=== PATIENT | male | born 1940 | race Caucasian/White ===

== ENCOUNTER 2021-10-07 14:30 | Emergency (ER) | payer OTHER ==
[2021-10-07] MEDS ORDERED: DIAZEPAM 5 MG TABLET PO ONE (15:00)
[2021-10-07] MEDS ORDERED: KETOROLAC 15MG/ML VIAL (15MG/ML) IV ONE (15:00)
[2021-10-07 15:05] VITALS: BP 107/61
[2021-10-07] MEDS ORDERED: KETOROLAC 15MG/ML VIAL (15MG/ML) ONE (15:47)
[2021-10-07] MEDS ORDERED: DIAZEPAM 5 MG TABLET ONE (15:47)
[2021-10-07] MEDS ORDERED: CYCL10TA16 PO (16:02)
[2021-10-07] MEDS ORDERED: TRAM1TAB2 PO (16:02)
== END 2021-10-07 16:30 | disposition home or self-care (01) ==
LOC: EDH 14:30
DX: S39.012A Strain of muscle, fascia and tendon of lower back, initial encounter (principal); E78.00 Pure hypercholesterolemia, unspecified; I10 Essential (primary) hypertension; I25.10 Atherosclerotic heart disease of native coronary artery without angina pectoris; J44.9 Chronic obstructive pulmonary disease, unspecified; Z95.0 Presence of cardiac pacemaker; Z95.810 Presence of automatic (implantable) cardiac defibrillator; X58.XXXA Exposure to other specified factors, initial encounter; Y93.89 Activity, other specified; Y92.89 Other specified places as the place of occurrence of the external cause; Y99.8 Other external cause status
CPT/HCPCS: 72131; 96374; 99284; J1885